=== PATIENT | male | born 1980 | race Two or more races ===

== ENCOUNTER 2025-07-11 17:32 | Emergency (ER) | payer OTHER ==
[~2025-07-11] VITALS: Ht 193 cm; Wt 103.1 kg
--- NOTE | 2025-07-11 18:49 | DVH ---
CLINICAL INDICATION: injury and pain TECHNIQUE: XYXY R TIB FIB XRAY Comparison: None FINDINGS/IMPRESSION: : There is no evidence of acute fracture or dislocation. Soft tissues are unremarkable.
--- NOTE | 2025-07-11 19:25 | ED.PDOC ---
Back pain HPI HPI Comments Pt presents to the ER with C/O right leg pain. Pt reports he was at work and turned to run, when doing so pt reports he heard and felt a "pop" in his right calf with sudden sharp pain and numbness to the right foot. ROM limited, CSM intact. Chief Complaint: Lower Extremity Time Seen by MD: 18:03 Reviewed Notes: Nurses Notes, Medications, Allergies Allergies: Coded Allergies: No Known Drug Allergy (Verified Allergy, Unknown, 07/11/25) Home Meds Active Scripts Ibuprofen (Ibuprofen) 800 Mg Tab, 800 MG PO Q8HP PRN for 10 Days, #30 TAB Prov:DEWEY ALDANA INTEL ANALYST 07/11/25 Information Source: Patient Mode of Arrival: Ambulatory Past Medical History PAST MEDICAL HISTORY: Denies Surgical History: Denies all surgeries Family History Family History: Unknown Social History Smoker: Non-Smoker Alcohol: Denies ETOH Use Drugs: Denies Drug Use All Other Systems: Reviewed and Negative (see hpi) Physical Exam General Appearance: No Apparent Distress, Normal HEENT: Pharynx Normal Neck: Full Range of Motion, Non-Tender Respiratory: Lungs Clear, No Respiratory Distress, Normal Breath Sounds Cardiovascular: No Edema, No JVD, No Murmur, No Gallop, Normal Peripheral Pulses, Regular Rate/Rhythm Breast Exam: Deferred Gastrointestinal: No Organomegaly, Non Tender, No Pulsatile Mass, Normal Bowel Sounds, Soft Genitalia: Deferred Pelvic: Deferred Rectal: Deferred Extremities: Normal capillary refill, No pedal edema Musculoskeletal : Location: Right Extremity Location: Calf (Moderate tenderness palpated over right middle no calf no noted edema positive pedal pulse sensory intact decreased plantar flexion normal dorsiflexion) Apperance: Normal Neurologic: Alert, No Motor Deficits, Normal Affect, Normal Mood, No Sensory Deficits Cerebellar Function: Normal Reflexes: Normal Skin: Dry, Normal Color, Warm Lymphatic: No Adenopathy Was a procedure done? Was a procedure done?: No Back Pain Differential Dx Differential Diagnosis: Fracture, Musculoskeletal Pain X-Ray, Labs, Meds, VS Vital Signs Date Time Temp Pulse Resp B/P (MAP) Pulse Ox O2 Delivery O2 Flow Rate FiO2 07/11/25 21:21 98.7 72 18 122/80 (94) 98 98.7 07/11/25 20:45 97.9 77 20 119/75 (90) 95 97.9 07/11/25 20:20 98 Room Air* 0 21 07/11/25 17:34 98.6 79 16 122/73 96 98.6 X-Ray, Labs, Meds, VS Comment X-ray of the tib-fib shows no acute fractures or dislocations. This is likely muscle strain. Patient placed in ortho boot crutches provided. Script trial of NSAID. Advised on rice. Light duty and to be cleared by Employee Health or symptoms persist recommend MRI of lower extremity. Advised on ER return precautions patient indicates understanding and agrees with discharge plan of care. Images Reviewed?: Images reviewed and evaluated by me Time of 1ST Reevaluation: 18:03 Reevaluation 1ST: Unchanged Time of 2ND Reevaluation: 20:08 Reevaluation 2ND: Improved Patient Education/Counseling: Diagnosis, Treatment, Need For Follow Up Family Education/Counseling: No Family Present SEPSIS Sepsis Screen Date sepsis recognized/suspect: Jul 11, 2025 Time Sepsis recognized/suspect: 1733 Recent Procedure: No On Antibiotic Therapy: No Respiratory Rate >20: No Heart Rate >90: No Temp<36 C (96.8 F) or >38.3 C: No SBP <90 or MAP <65 mmHG: No New Acute Mental Status Change: No Is the patient on CPAP, BIPAP,: No Physician Orders R Tib Fib Xray (07/11/25 18:04) Splints (07/11/25 ) Vital Signs Date Time Temp Pulse Resp B/P (MAP) Pulse Ox O2 Delivery O2 Flow Rate FiO2 07/11/25 21:21 98.7 72 18 122/80 (94) 98 98.7 07/11/25 20:45 97.9 77 20 119/75 (90) 95 97.9 07/11/25 20:20 98 Room Air* 0 21 07/11/25 17:34 98.6 79 16 122/73 96 98.6 Departure 1 Departure Time of Disposition: 20:11 Impression: Primary Impression: Strain of right calf muscle Disposition: HOME / SELF CARE / HOMELESS Condition: Stable e-Prescriptions Ibuprofen (Ibuprofen) 800 Mg Tab 800 MG PO Q8HP PRN for 10 Days, #30 TAB Prov: DEWEY ALDANA 07/11/25 Discharged With: Self Critical Care Note Critical Care Time?: No Stability Stability form required: DEWEY Hernandez Jul 11, 2025 19:25
[2025-07-11 20:20] VITALS: O2SAT 98
[2025-07-11] MEDS ORDERED: IBUP-1456 PO (20:25)
[2025-07-11 21:21] VITALS: BP 122/80; PULSE 72; RESP 18; TEMP 98.7; O2SAT 98
== END 2025-07-11 21:29 | disposition home or self-care (01) ==
LOC: ER 17:32
DX: S86.111A Strain of other muscle(s) and tendon(s) of posterior muscle group at lower leg level, right leg, initial encounter (principal); Z79.899 Other long term (current) drug therapy; X58.XXXA Exposure to other specified factors, initial encounter; Y93.89 Activity, other specified; Y92.89 Other specified places as the place of occurrence of the external cause; Y99.0 Civilian activity done for income or pay
CPT/HCPCS: 29505; 73590